=== PATIENT | male | born 2005 | race African-American/Black ===

== ENCOUNTER 2025-04-16 09:59 | Emergency (ER) | payer BC ==
[~2025-04-16] VITALS: Ht 182.9 cm; Wt 147.0 kg
[2025-04-16 10:07] VITALS: BP 129/75
[2025-04-16] MEDS ORDERED: CEFTRIAXONE /D5W 50ML IVPB **ER PYXIS IV ONE (10:36)
[2025-04-16] MEDS ORDERED: DEXAMETHASONE SOD PHOSPHATE 4 MG INJ ONE (10:36)
[2025-04-16] MEDS: CEFTRIAXONE 500 MG VIAL IV ONE (10:37)
[2025-04-16] MEDS: DEXAMETHASONE SOD PHOSPHATE 4 MG INJ IV ONE (10:37)
[2025-04-16 10:52] LABS: PLATELET COUNT (AUTO) 337 K/uL (152-348); RED BLOOD CELL COUNT(AUTO) 4.70 MIL/uL (4.06-5.63); RED CELL DISTRIBUTION WIDTH 13.7 % (12.1-16.2); WHITE BLOOD COUNT (AUTO) 13.0 K/uL (3.6-10.2)
[2025-04-16] MEDS ORDERED: IPRATROPIUM BROMIDE 0.5 MG/2.5 ML NEBU ONE (10:58)
[2025-04-16] MEDS ORDERED: ALBUTEROL SULFATE 2.5 MG/3 ML NEBU ONE (10:58)
[2025-04-16] MEDS: IPRATROPIUM BROMIDE 0.5 MG/2.5 ML NEBU NEB ONE (10:59)
[2025-04-16] MEDS: ALBUTEROL SULFATE 2.5 MG/3 ML NEBU NEB ONE (10:59)
[2025-04-16 11:00] VITALS: O2SAT 95
[2025-04-16 11:00] LABS: CREATININE 0.7 mg/dL (0.6-1.3); SODIUM SERUM 142 mmol/L (136-145); UREA NITROGEN, BLOOD 8 mg/dL (7-18)
[2025-04-16 11:15] VITALS: O2SAT 99
[2025-04-16] MEDS ORDERED: CEFU500T66 PO (11:43)
[2025-04-16] MEDS ORDERED: BUDE10.2 INH (11:43)
[2025-04-16 11:49] VITALS: BP 124/72; TEMP 98.5; O2SAT 96
== END 2025-04-16 11:51 | disposition home or self-care (01) ==
LOC: ER 10:34
DX: J45.901 Unspecified asthma with (acute) exacerbation (principal); Z79.51 Long term (current) use of inhaled steroids
CPT/HCPCS: 99284; 96365; 71045; 96375; 80048; 85025; 36415; 94640; J0696; J1100; 94760; A4663; J3590